=== PATIENT | female | born 2005 | race Two or more races ===

== ENCOUNTER 2024-11-17 13:39 | Emergency (ER) | payer MEDICAID, SELFPAY ==
[2024-11-17 13:40] VITALS: BMI 31.1
[2024-11-17 14:03] VITALS: BP 128/87; PULSE 90; RESP 16; TEMP 37; O2SAT 98; BMI 31.1
--- NOTE | 2024-11-17 14:20 | XR_ITS ---
Examination: Pelvic ultrasound, transabdominal, complete Technique: Transabdominal ultrasound of the pelvis performed using grayscale imaging Date and time of exam: November 17, 2024 1431 hours INDICATIONS: Vaginal bleeding beginning 2 months ago FINDINGS: Uterus 8.5 cm endometrial stripe 0.7 cm No uterine mass or intrauterine gestation Right ovary 3.0 cm arterial flow Left ovary 3.1 cm arterial flow small follicles IMPRESSION: No uterine mass or intrauterine gestation
--- NOTE | 2024-11-17 14:21 | PD.EDRME ---
Rapid Medical Screening Exam RME Arrival date/time: 11/17/24 13:39 This is a 18 year old female with complaints of vaginal bleeding for the past 6 weeks. Patient states she is approximately 1 year . Patient states she had not had a period since. She reports that she took a Plan B in September of this year. Patient states that she does not know if it was secondary to the Plan B she took another reason why she started bleeding. Patient states that over the last week the bleeding is heavier. Patient was seen at [facility], [place] and was sent here for further workup . I have greeted and performed a focused initial assessment of this patient. Initial appropriate labs ordered at this time. A comprehensive ED assessment and evaluation of the patient and analysis of all test and completion of medical decision making process will be conducted by additional ED provider. Chief Complaint: Vaginal Bleeding Time Seen by Provider: 11/17/24 14:06 Vital signs: Vital Signs Temperature 98.6 F 11/17/24 14:03 Pulse Rate 90 11/17/24 14:03 Respiratory Rate 16 11/17/24 14:03 Blood Pressure 128/87 H 11/17/24 14:03 Pulse Oximetry (%) 98 11/17/24 14:03 Oxygen Delivery Method Room Air 11/17/24 14:03
[2024-11-17 14:40] LABS: Basophils % (Auto) 0 % (0-2.5); Eosinophils % (Auto) 0 % (0-10); Hematocrit 39.6 % (36.0-46.0); Hemoglobin 13.2 g/dL (12.0-16.0); Immature Granulocytes % (Auto) 0 % (0-0); Immature Granulocytes Auto 0.03 Thou/mm3 (0.00-0.00); Lymphocytes # (Auto) 1.5 Thou/mm3 (1.0-5.0); Lymphocytes % (Auto) 14 % (10-50); Mean Corpuscular HGB Conc 33.3 g/dl (31.0-37.0); Mean Corpuscular Hemoglobin 27.4 pg (25.0-35.0); Mean Corpuscular Volume 82 fL (80-100); Monocytes # (Auto) 0.2 Thou/mm3 (0.0-0.8); Monocytes % (Auto) 2 % (0-12); Neutrophils # (Auto) 8.9 Thou/mm3 (1.8-7.7); Neutrophils % (Auto) 83 % (37-80); Nucleated Red Blood Cell % 0 /100 WBC (0); Platelet Count 413 Thou/mm3 (140-440); RDW Standard Deviation 38.7 fL (36.4-46.3); Red Blood Count 4.81 Miln/mm3 (4.00-5.20); White Blood Count 10.7 Thou/mm3 (4.5-11.0)
[2024-11-17 14:54] LABS: Collection Type, Urine Voided
[2024-11-17 15:01] LABS: Alanine Aminotransferase 16 U/L (10-49); Albumin, Serum 4.8 gm/dL (3.5-5.0); Albumin/Globulin Ratio 1.8 (1.2-2.2); Alkaline Phosphatase 92 U/L (46-116); Anion Gap 15 (7-16); Aspartate Amino Transferase 16 U/L (0-34); BUN/Creatinine Ratio 24 Ratio (12-20); Bilirubin,Total 0.2 mg/dL (0.3-1.2); Blood Urea Nitrogen 17 mg/dL (9-23); Calcium 9.4 mg/dL (8.3-10.6); Calcium (Corrected) 9.4 mg/dL (8.5-10.1); Chloride 109 mMol/L (98-107); Creatinine (Component) 0.7 mg/dL (0.6-1.3); Estimated Creatinine Clearance 124.3 mL/min (>60); Globulin 2.7 gm/dL (2.3-3.5); Glucose 107 mg/dL (74-106); Osmolality,Calculated 288 (275-295); Potassium 4.6 mMol/L (3.4-5.1); Sodium 144 mMol/L (136-145); Total Protein 7.5 gm/dL (5.7-8.2); eGFR > 60 See Note
[2024-11-17 15:06] LABS: Bilirubin,Urine Negative (Negative); Blood,Urine 3+ (Negative); Clarity,Urine Turbid (Clear/Hazy); Color,Urine Colorless (Lt Yel-Yel); Culture Indicated,Urine Not Indicated; Glucose, Urine Negative (Negative); Ketones,Urine Negative (Negative); Leukocyte Esterase,Urine Positive (Negative); Nitrite,Urine Negative (Negative); Protein,Urine Negative (Neg - Trace); RBC,Urine 1402 /hpf (0-3); Specific Gravity,Urine 1.016 (1.001-1.035); Squamous Epithelial Cell,Urine 1 /hpf (0-5); Urobilinogen,Urine Negative mg/dL (0.0-1.0); WBC,Urine 8 /hpf (0-5)
[2024-11-17 15:07] LABS: HCG Qualitative,Urine Negative
--- NOTE | 2024-11-17 15:50 | EDNOTE_ITS ---
ED OB Contraction Preg RMI/HPI General Chief complaint: Vaginal Bleeding Stated complaint: VAGINAL BLEEDING TIMES 1 MONTH Time Seen by Provider: 11/17/24 14:06 Arrival date/time: 11/17/24 13:39 This is a 18 year old female with complaints of vaginal bleeding for the past 6 weeks. Patient states she is approximately 1 year . Patient states she had not had a period since. She reports that she took a Plan B in September of this year. Patient states that she does not know if it was secondary to the Plan B she took another reason why she started bleeding. Patient states that over the last week the bleeding is heavier. Patient was seen at [facility] and was sent here for further workup RME / HPI RME / HPI Narrative: 11/17/24 13:39 This is a 18 year old female with complaints of vaginal bleeding for the past 6 weeks. Patient states she is approximately 1 year . Patient states she had not had a period since. She reports that she took a Plan B in September of this year. Patient states that she does not know if it was secondary to the Plan B she took another reason why she started bleeding. Patient states that over the last week the bleeding is heavier. Patient was seen at [facility] and was sent here for further workup . I have greeted and performed a focused initial assessment of this patient. Initial appropriate labs ordered at this time. A comprehensive ED assessment and evaluation of the patient and analysis of all test and completion of medical decision making process will be conducted by additional ED provider. Related Data Previous Rx's ?Medication ?Instructions ?Recorded docusate sodium 100 mg capsule 100 mg PO BID #60 caps 11/29/23 (Colace) hydrocortisone 2.5 % topical cream 1 applic VA QDAY VA N hemorrhoids 11/29/23 with perineal applicator #30 tubes (Proctosol HC) ibuprofen 800 mg tablet 800 mg PO Q6H PRN pain #120 tabs 11/29/23 lanolin 50 % topical ointment 1 applic topical TID PRN skin 11/29/23 irritation #15 tubes witch lauren 50 % topical pads 1 pad topical BID #100 e a 11/29/23 (Tucks (witch lauren)) medroxyprogesterone 10 mg tablet 10 mg PO QDAY 5 days #5 tabs 11/17/24 (Provera) Allergies Allergy/AdvReac Type Severity Reaction Status Date / Time No Known Allergies Allergy Verified 11/17/24 13:41 Course Orders Category Date Time Status US pelvic complete Stat Exams 11/17/24 14:20 Completed CBC Stat Lab 11/17/24 14:27 Completed Comprehensive Metabolic Panel Stat Lab 11/17/24 14:27 Completed HCG Qualitative,Urine Stat Lab 11/17/24 14:30 Completed Urinalysis, C/S if Indicated Stat Lab 11/17/24 14:30 Completed Vital Signs Vital signs: Vital Signs Temperature 98.6 F 11/17/24 14:03 Pulse Rate 90 11/17/24 14:03 Respiratory Rate 16 11/17/24 14:03 Blood Pressure 128/87 H 11/17/24 14:03 Pulse Oximetry (%) 98 11/17/24 14:03 Oxygen Delivery Method Room Air 11/17/24 14:03 Vaginal Bleeding MDM Narrative MDM Narrative: This is a 18 year old female with complaints of vaginal bleeding for the past 6 weeks. Patient states she is approximately 1 year . Patient states she had not had a period since. She reports that she took a Plan B in September of this year. Patient states that she does not know if it was secondary to the Plan B she took another reason why she started bleeding. Patient states that over the last week the bleeding is heavier. Patient was seen at [facility] and was sent here for further workup pelvic ultrasound: FINDINGS: Uterus 8.5 cm endometrial stripe 0.7 cm No uterine mass or intrauterine gestation Right ovary 3.0 cm arterial flow Left ovary 3.1 cm arterial flow small follicles IMPRESSION: No uterine mass or intrauterine gestation Discharge Plan Plan Patient Disposition: HOME (Self Care) Patient condition on transfer: Stable Prescriptions/Referrals Prescriptions/Med Rec: New medroxyprogesterone [Provera] 10 mg tablet 10 mg PO QDAY 5 Days Qty: 5 0RF No Action ibuprofen 800 mg tablet 800 mg PO Q6H MDD 4 PRN (Reason: pain) Qty: 120 0RF hydrocortisone [Proctosol HC] 2.5 % cream with perineal applicator 1 applic VA QDAY PRN (Reason: hemorrhoids) Qty: 30 0RF docusate sodium [Colace] 100 mg capsule 100 mg PO BID Qty: 60 0RF lanolin 50 % ointment 1 applic topical TID PRN (Reason: skin irritation) Qty: 15 0RF Tucks (witch lauren) 50 % pads, medicated 1 pad topical BID Qty: 100 0RF Referrals: No Primary/Family,Physician [Primary Care Provider] - In 1 week Problem List Clinical Impression: Abnormal vaginal bleeding Patient/Caregiver Discharge Instructions Discharge Activity: activity as tolerated Education Materials: Understanding Uterine Bleeding Additional Instructions: Follow up with primary provider in 1-2 days. Come back to ED if symptoms change or worsen Print Language: Ivorian Stand Alone Forms: Mary Award Info., Patient Portal Info Letter PA/BIODIESEL ENGINE SPECIALIST Supervising Physician PA/BIODIESEL ENGINE SPECIALIST Supervising Physician: [email or web address]
== END 2024-11-17 16:48 | disposition home or self-care (01) ==
PROVIDERS: Nurse Practitioner Family; Emergency Provider Emergency Medicine
DX: N93.9 Abnormal uterine and vaginal bleeding, unspecified (principal)
CPT/HCPCS: 36415; 76856; 80053; 81001; 81025; 85025; 87400; 87811; 99284